=== PATIENT | male | born 1960 | race Caucasian/White ===

== ENCOUNTER 2020-05-24 13:39 | Emergency (ER) | payer BC ==
[~2020-05-24] VITALS: Ht 185 cm; Wt 205.0 kg
[2020-05-24 13:57] LABS: ABG BASE EXCESS 3.6 MMOL/L (-2.5-2.5); ABG OXYGEN SATURATION 96 % (94-100); ABG PCO2 49 MMHG (35-45); ABG PH 7.38 (7.37-7.43); ABG PO2 80 MMHG (79-93)
--- NOTE | 2020-05-24 13:57 | ED Cough/URI ---
General Stated Complaint: SOB, COUGH, Source: patient Exam Limitations: no limitations History of Present Illness Date Seen by Provider: May 24, 2020 Time Seen by Provider: 13:49 Initial Comments To ER with c/o sob/cough x 3 weeks. No fevers. Found to be hypoxic at Dr Rojas office at 75% and was referred here. Is 86% on room air upon arrival to room 9 here, quickly increases to 95% with rest. Timing/Duration: constant Severity/Quality: moderate Prior Episodes/Possible Cause: no prior episodes Associated Symptoms: cough, nasal congestion Allergies and Home Medications Allergies Coded Allergies: fluoxetine (Verified Allergy, Unknown, 05/24/20) Home Medications Azithromycin 250 Mg Tablet, 250 MG PO UD TAKE 2 TABLETS ON DAY ONE THEN TAKE 1 TABLET DAILY FOR FOUR MORE DAYS. Prescribed by: REUBEN JIANG on 05/24/20 1601 Prednisone 20 Mg Tab, 40 MG PO DAILY . Prescribed by: REUBEN JIANG on 05/24/20 1601 Patient Home Medication List Home Medication List Reviewed: Yes Review of Systems Review of Systems Constitutional: see HPI EENTM: see HPI Respiratory: see HPI, cough, short of breath Cardiovascular: no symptoms reported Genitourinary: no symptoms reported Musculoskeletal: no symptoms reported Skin: no symptoms reported Psychiatric/Neurological: No Symptoms Reported Hematologic/Lymphatic: No Symptoms Reported Immunological/Allergic: no symptoms reported Physical Exam Vital Signs - First Documented 05/24/20 13:40 Temp 36.3 Pulse 93 Resp 22 B/P (MAP) 159/92 (114) Pulse Ox 95 Capillary Refill : Height: '" Weight: lbs. oz. kg; BMI Method: General Appearance: WD/WN, no apparent distress, obese Eyes: Bilateral Eye Normal Inspection, Bilateral Eye PERRL, Bilateral Eye EOMI HEENT: PERRL/EOMI, normal ENT inspection Respiratory: normal breath sounds, no respiratory distress, no accessory muscle use Cardiovascular: regular rate, rhythm, no murmur Gastrointestinal: normal bowel sounds, non tender, soft Neurologic/Psychiatric: alert, normal mood/affect, oriented x 3 Skin: normal color, warm/dry Progress/Results/Core Measures Suspected Sepsis SIRS Temperature: Pulse: Respiratory Rate: Laboratory Tests 05/24/20 14:50: White Blood Count 11.3H Blood Pressure / Mean: Laboratory Tests 05/24/20 14:50: Creatinine 0.79, Platelet Count 195, Total Bilirubin 0.3 Results/Orders Lab Results Laboratory Tests Test 05/24/20 13:47 05/24/20 13:56 05/24/20 14:50 05/24/20 15:00 Range/Units Blood Gas Puncture Site LEFT RADIAL Blood Gas Patient Temperature 36.6 Arterial Blood pH 7.38 7.37-7.43 Arterial Blood Partial Pressure CO2 49 H 35-45 MMHG Arterial Blood Partial Pressure O2 80 79-93 MMHG Arterial Blood HCO3 28 H 23-27 MMOL/L Arterial Blood Total CO2 30.0 21.0-31.0 MMOL/L Arterial Blood Oxygen Saturation 96 94-100 % Arterial Blood Base Excess 3.6 H -2.5-2.5 MMOL/L Moises Test YES-POS Blood Gas Ventilator Setting NO Blood Gas Inspired Oxygen ROOM AIR Coronavirus 2018 (SHYAM) Negative Negative White Blood Count 11.3 H 4.3-11.0 10^3/uL Red Blood Count 5.19 4.30-5.52 10^6/uL Hemoglobin 15.6 13.3-17.7 g/dL Hematocrit 49 40-54 % Mean Corpuscular Volume 94 80-99 fL Mean Corpuscular Hemoglobin 30 25-34 pg Mean Corpuscular Hemoglobin Concent 32 32-36 g/dL Red Cell Distribution Width 13.3 10.0-14.5 % Platelet Count 195 130-400 10^3/uL Mean Platelet Volume 10.5 9.0-12.2 fL Immature Granulocyte % (Auto) 0 % Neutrophils (%) (Auto) 74 42-75 % Lymphocytes (%) (Auto) 15 12-44 % Monocytes (%) (Auto) 7 0-12 % Eosinophils (%) (Auto) 4 0-10 % Basophils (%) (Auto) 0 0-10 % Neutrophils # (Auto) 8.3 H 1.8-7.8 X 10^3 Lymphocytes # (Auto) 1.6 1.0-4.0 X 10^3 Monocytes # (Auto) 0.8 0.0-1.0 X 10^3 Eosinophils # (Auto) 0.4 H 0.0-0.3 10^3/uL Basophils # (Auto) 0.0 0.0-0.1 10^3/uL Immature Granulocyte # (Auto) 0.0 0.0-0.1 10^3/uL Sodium Level 138 135-145 MMOL/L Potassium Level 4.1 3.6-5.0 MMOL/L Chloride Level 101 98-107 MMOL/L Carbon Dioxide Level 29 21-32 MMOL/L Anion Gap 8 5-14 MMOL/L Blood Urea Nitrogen 15 7-18 MG/DL Creatinine 0.79 0.60-1.30 MG/DL Estimat Glomerular Filtration Rate > 60 BUN/Creatinine Ratio 19 Glucose Level 109 H 70-105 MG/DL Calcium Level 9.0 8.5-10.1 MG/DL Corrected Calcium 8.9 8.5-10.1 MG/DL Total Bilirubin 0.3 0.1-1.0 MG/DL Aspartate Amino Transf (AST/SGOT) 19 5-34 U/L Alanine Aminotransferase (ALT/SGPT) 25 0-55 U/L Alkaline Phosphatase 122 40-136 U/L C-Reactive Protein High Sensitivity 1.12 H 0.00-0.50 MG/DL Total Protein 7.0 6.4-8.2 GM/DL Albumin 4.1 3.2-4.5 GM/DL Procalcitonin 0.02 <0.10 NG/ML D-Dimer 0.33 0.00-0.49 UG/ML B-Type Natriuretic Peptide 12.2 <100.0 PG/ML My Orders Orders - REUBEN JIANG APRN Cbc With Automated Diff (05/24/20 13:51) Hs C Reactive Protein (05/24/20 13:51) Comprehensive Metabolic Panel (05/24/20 13:51) Arterial Blood Gas (05/24/20 13:51) Chest 1 View, Ap/Pa Only (05/24/20 13:51) Procalcitonin (Pct) (05/24/20 13:51) Fibrin Degradation Products (05/24/20 13:51) BNP (05/24/20 13:51) Ekg Tracing (05/24/20 13:51) Covid 19 Inhouse Test (05/24/20 14:22) Oxymetazoline 0.05% Nasal [place] (Afrin 0. (05/24/20 21:00) Vital Signs/I&O 05/24/20 05/24/20 13:40 16:05 Temp 36.3 Pulse 93 87 Resp 22 18 B/P (MAP) 159/92 (114) 130/81 Pulse Ox 95 94 Capillary Refill : Diagnostic Imaging Diagonstic Imaging: Xray Comments NAME: IVIS BOONE [facility] REC#: [id number] PT STATUS: REG ER : 1960 PHYSICIAN: REUBEN JIANG APRN ADMIT DATE: 05/24/20/ER Draft Date of Exam:05/24/20 CHEST 1 VIEW, AP/PA ONLY INDICATION: Cough COMPARISON: None available. TECHNIQUE: Single radiograph of the chest dated May 24, 2020. FINDINGS: The cardiac silhouette is enlarged. The pulmonary vasculature is engorged. No definite focal pulmonary opacity. No significant pleural effusion. No pneumothorax. No acute osseous abnormality. IMPRESSION: Cardiomegaly with central pulmonary vascular congestion. Dictated on workstation # [id number] Dict: 05/24/20 1516 Trans: 05/24/20 1520 [id number] Interpreted by: JAROCHO BEY MD Electronically signed by: Departure Communication (Admissions) Patient's oxygen saturation is 86% with good waveform on arrival to her room after ambulating in. 1554-oxygen saturation remains 92% on room air. Respiratory rate is 21. I spoke with Dr. Rojas and she agrees with plan of care. I will treat this as a bronchitis with some antibiotics and steroids and I will arrange home oxygen for him. I spoken with durable medical equipment and they will bring the mobile oxygen concentrator to the emergency room. Impression Primary Impression: Obesity with alveolar hypoventilation Additional Impressions: Exertional hypoxia Bronchitis Disposition: HOME, SELF-CARE Condition: Stable Departure-Patient Inst. Decision time for Depature: 15:47 Referrals: IVONNE ROJAS MD (PCP/Family) Primary Care Physician Patient Instructions: Acute Bronchitis, Obesity, Adult (DC) Add. Discharge Instructions: 1. Wear the oxygen when you are up moving around. You could wear this all the time as well. It is very important that you use the CPAP that you have at night. This will significantly help your breathing and her quality of sleep. Follow-up with Dr. Rojas. Take the antibiotics and steroids as directed. Scripts Prednisone (Prednisone) 20 Mg Tab 40 MG PO DAILY, #8 TAB 0 Refills . Prov: REUBEN JIANG APRN 05/24/20 Azithromycin (Azithromycin) 250 Mg Tablet 250 MG PO UD, #6 TAB TAKE 2 TABLETS ON DAY ONE THEN TAKE 1 TABLET DAILY FOR FOUR MORE DAYS. Prov: REUBEN JIANG APRN 05/24/20 [oxygen concentrator] No Conflict Check L NA for hypoxia, #2 Oxygen at 2 to 4 L per nasal cannula to keep oxygen saturation greater than 90% Prov: REUBEN JIANG APRN 05/24/20 Copy Copies To 1: IVONNE ROJAS MD, PETER J APRN May 24, 2020 13:57
[2020-05-24 13:58] LABS: ALLENS TEST YES-POS; INSPIRED O2 ROOM AIR; PATIENT TEMP 36.6; VENTILATOR NO
[2020-05-24 14:55] LABS: BASOPHILS % (AUTO) 0 % (0-10); EOSINOPHILS # (AUTO) 0.4 10^3/uL (0.0-0.3); EOSINOPHILS % (AUTO) 4 % (0-10); HEMATOCRIT 49 % (40-54); HEMOGLOBIN 15.6 g/dL (13.3-17.7); LYMPHOCYTES # (AUTO) 1.6 X 10^3 (1.0-4.0); LYMPHOCYTES % (AUTO) 15 % (12-44); MEAN CORPUSCULAR HEMOGLOBIN 30 pg (25-34); MEAN CORPUSCULAR HGB CONC 32 g/dL (32-36); MEAN CORPUSCULAR VOLUME 94 fL (80-99); MEAN PLATELET VOLUME 10.5 fL (9.0-12.2); MONOCYTES # (AUTO) 0.8 X 10^3 (0.0-1.0); MONOCYTES % (AUTO) 7 % (0-12); NEUTROPHILS # (AUTO) 8.3 X 10^3 (1.8-7.8); NEUTROPHILS % (AUTO) 74 % (42-75); PLATELET COUNT 195 10^3/uL (130-400); WHITE BLOOD COUNT 11.3 10^3/uL (4.3-11.0)
[2020-05-24 15:11] LABS: ALBUMIN 4.1 GM/DL (3.2-4.5); CHLORIDE 101 MMOL/L (98-107); POTASSIUM 4.1 MMOL/L (3.6-5.0); SODIUM 138 MMOL/L (135-145)
[2020-05-24 15:14] LABS: GLUCOSE 109 MG/DL (70-105)
[2020-05-24 15:15] LABS: BILIRUBIN,TOTAL 0.3 MG/DL (0.1-1.0); CARBON DIOXIDE 29 MMOL/L (21-32)
[2020-05-24 15:17] LABS: ALKALINE PHOSPHATASE 122 U/L (40-136); CREATININE SERUM 0.79 MG/DL (0.60-1.30); GFR ESTIMATED > 60
[2020-05-24 15:18] LABS: BUN/CREATININE RATIO 19
[2020-05-24 15:20] LABS: ALANINE AMINOTRANSFERASE 25 U/L (0-55)
--- NOTE | 2020-05-24 15:20 | Diagnostic Imaging Report ---
INDICATION: Cough COMPARISON: None available. TECHNIQUE: Single radiograph of the chest dated May 24, 2020. FINDINGS: The cardiac silhouette is enlarged. The pulmonary vasculature is engorged. No definite focal pulmonary opacity. No significant pleural effusion. No pneumothorax. No acute osseous abnormality. IMPRESSION: Cardiomegaly with central pulmonary vascular congestion. Dictated by: Dictated on workstation # [id number]
[2020-05-24] MEDS ORDERED: PRD20T PO ×2 (15:49→16:01)
[2020-05-24] MEDS ORDERED: AZIT250T12 PO ×2 (15:49→16:01)
[2020-05-24] MEDS ORDERED: oxygen concentrator (15:51)
--- NOTE | 2020-05-24 16:01 | NUR ---
DME HERE TO SET UP HOME O2
[2020-05-24 16:05] VITALS: BP 130/81
[2020-05-24] MEDS ORDERED: OXYMETAZOLINE (AFRIN) 0.05% NA 30 ML BTL SCH (21:00)
== END 2020-05-24 16:08 | disposition home or self-care (01) ==
LOC: EDUNIT# 13:39 → ER 13:41
DX: E66.2 Morbid (severe) obesity with alveolar hypoventilation (principal); R09.02 Hypoxemia; J40 Bronchitis, not specified as acute or chronic; Z20.822 Contact with and (suspected) exposure to COVID-19; Z88.8 Allergy status to other drugs, medicaments and biological substances; Z79.52 Long term (current) use of systemic steroids
CPT/HCPCS: 71045; 80053; 82805; 83880; 84145; 85025; 85379; 86141; U0002; 36415; 87635; 93005

== ENCOUNTER → 2021-01-17 | Outpatient (CLI) | payer BC, OTHER ==
[~2021-01-17] MED LIST: AZIT250T12 PO; PRD20T PO; oxygen concentrator
--- NOTE | 2021-01-17 10:05 | Diagnostic Imaging Report ---
INDICATION: Knee pain. FINDINGS: There are moderate degenerative changes in the right knee. This includes joint space narrowing, subchondral sclerosis, and marginal osteophytosis. There is no fracture or dislocation. There is no joint effusion. The soft tissues are unremarkable. IMPRESSION: Moderate 3 compartment osteoarthritic change in the right knee. Dictated by: Dictated on workstation # [id number]
== END ==
LOC: RAD 08:50
PROVIDERS: ATTEND Anesthesiology Pain Medicine
DX: Z02.71 Encounter for disability determination (principal); M17.11 Unilateral primary osteoarthritis, right knee
CPT/HCPCS: 73560

== ENCOUNTER 2023-02-23 20:25 | Outpatient (CLI) | payer MEDICARE ==
[~2023-02-23 20:25] MED LIST changes: +ALBU2.5V4 NEB; +APIX5TAB PO; +CETI10TA17 PO; +LOSA50TA63 PO; +METO50TA7 PO; +NAPR220T66 PO; +OXYM30SP25 NS
[2023-03-06] MEDS ORDERED: RIVA20TA PO (08:30)
[2023-03-06] MEDS ORDERED: MTP100TCR PO (08:30)
== END 2023-02-24 04:28 ==
LOC: SLEEP 20:25
PROVIDERS: ATTEND Family Medicine
DX: G47.33 Obstructive sleep apnea (adult) (pediatric) (principal)

== ENCOUNTER → 2023-03-06 | Day surgery (SDC) | payer MEDICARE ==
[~2023-03-06] VITALS: Ht 182.9 cm; Wt 213.7 kg
[~2023-03-06] MED LIST changes: +KETAMINE 50 MG/5 ML SYRINGE ONE; +LIDOCAINE 2% VISCOUS 15 ML UDC ONE; +LIDOCAINE 2% VISCOUS 15 ML UDC PO ONE; +MIDAZOLAM INJ 2 MG/2 ML VIAL ONE; +MTP100TCR PO; +NS IV 1000 ML 1,000 ML IV SCH; +NS IV 1000 ML 1,000 ML ONE; +RIVA20TA PO; +proPOfol INJECTION 200 MG/20 ML VIAL IV ONE
[2023-03-06 08:00] VITALS: BP 122/85
--- NOTE | 2023-03-06 08:09 | Cardiac Procedure Note-CS/ASA ---
Pre-Procedure Note Pre-Op Procedure Note Date of Available H&P: Feb 12, 2023 Date H&P Reviewed: Mar 06, 2023 Time H&P Reviewed: 08:08 History & Physical: H&P Reviewed, Patient Examed, No changes noted Pre-Operative Diagnosis: CAD Moderate Sedation PreProcedure Time 08:08 ASA Score 3 Airway Lungs Heart ASA score ASA 1: a normal healthy patient ASA 2: a patient with a mild systemic disease (mid diabetes, controlled hypertension, obesity ASA 3: a patient with a severe systemic disease that limits activity (angina, COPD, prior Myocardial infarction) ASA 4: a patient with an incapacitating disease that is a constant threat to life (CHF, renal failure) ASA 5: a moribund patient not expected to survive 24 hrs. (ruptured aneurysm) ASA 6: a declared brain- patient whose organs are being harvested. For emergent operations, add the letter E after the classification Mallampati Classification Grade 3 Sedation Plan Analgesia, Amnesia, Plan communicated to team members, Discussed options with patient/fam, Discussed risks with patient/fam The patient is an appropriate candidate to undergo the planned procedure, sedation, and anesthesia. The patient immediately re-assessed prior to indication. CRUZ HAGEN MD Mar 06, 2023 08:09
--- NOTE | 2023-03-06 08:52 | Discharge Inst-Post CATH ---
Discharge Inst-CATH/EP Problems Reviewed?: Yes Post Cardiac Cath/EP D/C Inst Follow Up/Plan Appointment with Dr. Miller's office in 1 to 2 weeks <b>CARDIAC CATH/EP PROCEDURE DISCHARGE INSTRUCTIONS</b> ACTIVITY * Go Home directly and rest. * Limit activity of the leg (or wrist if it was used) for 7 days including aer obics, swimming, jogging, bicycling, etc. * Restrict stair-climbing for 7 days if possible, if not, climb up with your non-cath leg, then bring together on the same step. * Avoid lifting, pushing, pulling or excessive movement of the affected extremi ty for 7 days. * Customary sexual activity may be resumed after 2 days-use caution not to use a position that strains or causes pain to the affected extremity. * No driving for 24 hours. * NO SMOKING. * Avoid straining for bowel movements for 7 days. * Gentle walking on level ground is allowed. * Returning to work will depend on the type of procedure and the results. Your doctor will discuss this with you. CALL YOUR DOCTOR FOR ANY OF THE FOLLOWING: *If bleeding from the puncture site occurs- Apply gentle pressure to site with clean cloth and call your doctor or EMS. * If a knot or lump forms under the skin, increases in size, or causes pain. * If bruising appears to be worsening or moving further down your leg instead of disappearing. * Temperature above 101 F. CARE OF YOUR GROIN INCISION; * Bruising or purple discoloration of the skin near the puncture site is common. * You may shower only, no bathtub bathing for 5 days. Be careful to avoid slipping as your leg may feel stiff. * If a closure device was used on your femoral artery, please see the attached guide regarding care of the device and your leg. * Leave dressing on FOR 24 hours. CARE OF YOUR WRIST INCISION; * Bruising or purple discoloration of the skin near the puncture site is common. * You may shower. * DO NOT submerge wrist. * Leave dressing on FOR 24 hours. CRUZ MILLER MD Mar 06, 2023 08:52
--- NOTE | 2023-03-06 08:53 | Cardioversion ---
Cardioversion PROCEDURE PHYSICIAN: Cruz Miller DATE OF PROCEDURE: 03/06/23 DIRECT EXTERNAL ELECTRICAL CARDIOVERSION: Indications: Atrial Fibrillation with rapid ventricular rate Preoperative diagnoses: Atrial Fibrillation with rapid ventricular rate Postoperative diagnosis: Sinus rhythm, Successful Electrical Cardioversion History: 63-year-old gentleman with paroxysmal atrial flutter, has been having persistent atrial flutter. Scheduled for ABBE which was done showing no clot or thrombus in the left atrial appendage, we decided to proceed with cardioversion Anesthesia: By Anesthesia services Complications: None Specimen: None Contrast: 0 Flouroscopy: none Procedure Details: The patient was brought the mini lab operator after informed consent was taken, all the risks and complications were explained including the risk of stroke. Electrical cardioversion was carried out with anesthesia support with propofol. 200 joules of synchronized shock was delivered through external patches which promptly restored sinus rhythm. The patient tolerated the procedure well. Conclusions: Successful electrical cardioversion terminating atrial flutter Final Diagnosis: Paroxysmal atrial flutter Palpitation Hypertension Hyperlipidemia XIAO,CRUZ Andres MD Mar 06, 2023 08:53
--- NOTE | 2023-03-06 16:13 | Anesthesia-General Post-Op ---
MAC Patient Condition Mental Status/LOC: Same as Preop Cardiovascular: Satisfactory Nausea/Vomiting: Absent Respiratory: Satisfactory Pain: Controlled Complications: Absent Post Op Complications Complications None Follow Up Care/Instructions Patient Instructions None needed. Anesthesiology Discharge Order Discharge Order Patient was doing well this morning after the procedure with no complaints, stable vital signs, no apparent adverse anesthesia problems. No complications reported per nursing. ANURAG CHRISTY DO Mar 06, 2023 16:13
== END | disposition home or self-care (01) ==
LOC: CATH 07:07
PROVIDERS: ATTEND Internal Medicine Cardiovascular Disease
DX: I48.91 Unspecified atrial fibrillation (principal); I48.92 Unspecified atrial flutter; I10 Essential (primary) hypertension; I65.23 Occlusion and stenosis of bilateral carotid arteries; E78.5 Hyperlipidemia, unspecified; R00.2 Palpitations; G47.33 Obstructive sleep apnea (adult) (pediatric); I45.10 Unspecified right bundle-branch block; I44.4 Left anterior fascicular block; Z79.01 Long term (current) use of anticoagulants; Z87.891 Personal history of nicotine dependence; Z79.899 Other long term (current) drug therapy
CPT/HCPCS: 92960; 93005; 93312